=== PATIENT | female | born 1985 | race American Indian/Alaskan Native ===

== ENCOUNTER 2018-08-01 08:16 | Emergency (ER) | payer MEDICARE ==
[2018-08-01 08:23] VITALS: BP 134/76
[2018-08-01] MEDS ORDERED: ZOFRAN ODT PO ONE (11:20)
[2018-08-01] MEDS ORDERED: NORCO 10/325 PO ONE (11:20)
--- NOTE | 2018-08-01 11:33 | Emergency Department Report ---
ED General Adult HPI - General Chief complaint: Dental/Oral Stated complaint: TOOTHACHE Time Seen by Provider: 08/01/18 11:00 Source: patient Mode of arrival: Ambulatory Limitations: No Limitations - History of Present Illness Initial comments: Patient complains of right upper dental pain that started 2 days ago. Patient states eating or drinking as her symptoms worse. Patient denies fever -: Gradual Location: mouth Radiation: non-radiation Severity scale (0 -10): 3 Quality: aching Consistency: constant Improves with: none Worsens with: cold therapy, eating Associated Symptoms: denies other symptoms Treatments Prior to Arrival: none - Related Data Previous Rx's Medication Instructions Recorded Last Taken Type HYDROcodone/ACETAMINOPHEN [[place] 1 each PO Q6HR #12 tablet 08/01/18 Unknown Rx 5-325 Tablet] Ibuprofen [Motrin] 800 mg PO Q8HR PRN #30 tablet 08/01/18 Unknown Rx Penicillin V Potassium 500 mg PO TID #21 tablet 08/01/18 Unknown Rx Allergies Allergy/AdvReac Type Severity Reaction Status Date / Time shellfish derived Allergy Hives Verified 08/01/18 08:21 ED Review of Systems ROS: Stated complaint: TOOTHACHE Other details as noted in HPI Constitutional: denies: chills, fever Eyes: denies: eye pain, eye discharge, vision change ENT: dental pain. denies: ear pain, throat pain Respiratory: denies: cough, shortness of breath, wheezing Cardiovascular: denies: chest pain, palpitations Endocrine: no symptoms reported Gastrointestinal: denies: abdominal pain, nausea, diarrhea Genitourinary: denies: urgency, dysuria, discharge Musculoskeletal: denies: back pain, joint swelling, arthralgia Skin: denies: rash, lesions Neurological: denies: headache, weakness, paresthesias Psychiatric: denies: anxiety, depression Hematological/Lymphatic: denies: easy bleeding, easy bruising ED Past Medical Hx - Past Medical History Hx Asthma: Yes - Surgical History Additional Surgical History: gastric bypass - Social History Smoking Status: Current Some Day Smoker Substance Use Type: Alcohol - Medications Home Medications: Home Medications Medication Instructions Recorded Confirmed Last Taken Type HYDROcodone/ACETAMINOPHEN [[place] 1 each PO Q6HR #12 tablet 08/01/18 Unknown Rx 5-325 Tablet] Ibuprofen [Motrin] 800 mg PO Q8HR PRN #30 tablet 09/05/18 Unknown Rx Penicillin V Potassium 500 mg PO TID #21 tablet 08/01/18 Unknown Rx ED Physical Exam - General Limitations: No Limitations General appearance: alert, in no apparent distress - Head Head exam: Present: atraumatic, normocephalic - Eye Eye exam: Present: normal appearance - ENT ENT exam: Present: mucous membranes moist, other (dental caries of the right upper molars with soft tissue swelling surrounding the tooth) - Neck Neck exam: Present: normal inspection - Respiratory Respiratory exam: Present: normal lung sounds bilaterally. Absent: respiratory distress - Cardiovascular Cardiovascular Exam: Present: regular rate, normal rhythm. Absent: systolic murmur, diastolic murmur, rubs, gallop - GI/Abdominal GI/Abdominal exam: Present: soft, normal bowel sounds - Extremities Exam Extremities exam: Present: normal inspection - Back Exam Back exam: Present: normal inspection - Neurological Exam Neurological exam: Present: alert, oriented X3, CN II-XII intact. Absent: motor sensory deficit - Psychiatric Psychiatric exam: Present: normal affect, normal mood - Skin Skin exam: Present: warm, dry, intact, normal color. Absent: rash ED Course Vital Signs 08/01/18 08:21 Temperature 98.6 F Pulse Rate 86 Respiratory 18 Rate Blood Pressure 134/76 O2 Sat by Pulse 98 Oximetry ED Medical Decision Making - Medical Decision Making Discussed plan of care with patient Critical care attestation.: If time is entered above; I have spent that time in minutes in the direct care of this critically ill patient, excluding procedure time. ED Disposition Clinical Impression: Pain, dental Disposition: DC-01 TO HOME OR SELFCARE Is pt being admited?: No Does the pt Need Aspirin: No Condition: Stable Instructions: Toothache (ED) Additional Instructions: return if worse Prescriptions: HYDROcodone/ACETAMINOPHEN [[place] 5-325 Tablet] 1 each PO Q6HR #12 tablet Ibuprofen [Motrin] 800 mg PO Q8HR PRN #30 tablet PRN Reason: pain Penicillin V Potassium 500 mg PO TID #21 tablet Referrals: PRIMARY CARE,MD [Primary Care Provider] - 3-5 Days [facility] [Outside] - 3-5 Days Time of Disposition: 11:33
== END 2018-08-01 11:53 | disposition home or self-care (01) ==
LOC: ED 08:16
DX: K08.89 Other specified disorders of teeth and supporting structures (principal); F17.200 Nicotine dependence, unspecified, uncomplicated; J45.909 Unspecified asthma, uncomplicated; Z91.013 Allergy to seafood
CPT/HCPCS: 99282; Q0162

== ENCOUNTER 2019-04-30 15:23 | Emergency (ER) | payer MEDICARE ==
--- NOTE | 2019-04-30 16:28 | Emergency Department Report ---
Chief Complaint: Dizziness Stated Complaint: DIZZY/LIGHTHEADED Time Seen by Provider: 04/30/19 16:23 - HPI History of Present Illness: This is a 33 y.o. F. that presents to the ER with dizziness and headache since last night. History of WPW and migraines. - Exam Vital Signs: Vital Signs 04/30/19 16:23 Temperature 98.4 F Pulse Rate 58 L Respiratory 16 Rate Blood Pressure 116/64 O2 Sat by Pulse 99 Oximetry MSE screening note: Focused history and physical exam performed. Due to findings the following was ordered: This initial assessment/diagnostic orders/clinical plan/treatment(s) is/are subject to change based on patient's health status, clinical progression and re- assessment by fellow clinical providers in the ED. Further treatment and workup at subsequent clinical providers discretion. Patient/guardians urged not to elope from the ED as their condition may be serious if not clinically assessed and managed. Initial orders include: EKG ED Disposition for MSE Condition: Stable
[2019-04-30 20:14] VITALS: BP 108/67
[2019-04-30] MEDS ORDERED: BENADRYL PO ONE (21:01)
[2019-04-30] MEDS ORDERED: TYLENOL PO ONE (21:02)
--- NOTE | 2019-04-30 22:12 | Emergency Department Report ---
ED Dizziness HPI - General Chief Complaint: Dizziness Stated Complaint: DIZZY/LIGHTHEADED Time Seen by Provider: 04/30/19 16:23 Source: patient Mode of arrival: Ambulatory Limitations: No Limitations - History of Present Illness Initial Comments: Patient is a 33-year-old female with a history of migraine headaches and WPW who presents with dizziness since yesterday there is associated with sinus pressure there is no fever no chills symptoms are exacerbated by position and movement systems WERE reviewed by rest patient denies cough there is no rhino rrhea this time there is no chest pain no palpitations no nausea vomiting no back pain no diaphoresis patient is ambulatory to baseline with steady gait per patient. headache is 5/10 parietal usual location as headaches of past there is no decreased vision no photophobia. MD Complaint: dizziness Onset/Timin -: days(s) Timing: gradual onset Description: sense of movement History of Same: Yes History of Trauma: No Severity: moderate Improves With: rest Worsens With: movement Associated Symptoms: denies: ataxia, chest pain, confusion, cough, diaphoresis, fever/chills, loss of appetite, malaise, rash, seizure, shortness of breath, syncope, weakness - Related Data Previous Rx's Medication Instructions Recorded Last Taken Type HYDROcodone/ACETAMINOPHEN [[place] 1 each PO Q6HR #12 tablet 08/01/18 Unknown Rx 5-325 Tablet] Ibuprofen [Motrin] 800 mg PO Q8HR PRN #30 tablet 08/01/18 Unknown Rx Penicillin V Potassium 500 mg PO TID #21 tablet 08/01/18 Unknown Rx Acetaminophen [Acetaminophen TAB] 1,000 mg PO Q6HR PRN #30 tablet 04/30/19 Unknown Rx Metoclopramide [Reglan] 10 mg PO Q6H PRN #30 tablet 04/30/19 Unknown Rx diphenhydrAMINE [Benadryl CAP] 25 mg PO Q6HR PRN #30 capsule 04/30/19 Unknown Rx Allergies Allergy/AdvReac Type Severity Reaction Status Date / Time shellfish derived Allergy Hives Verified 04/30/19 15:31 ED Review of Systems ROS: Stated complaint: DIZZY/LIGHTHEADED Other details as noted in HPI Constitutional: denies: chills, fever Eyes: denies: eye pain, eye discharge, vision change ENT: congestion, other (sinus pressure pain). denies: ear pain, throat pain Respiratory: denies: cough, shortness of breath, wheezing Cardiovascular: denies: chest pain, palpitations Endocrine: no symptoms reported Gastrointestinal: denies: abdominal pain, nausea, diarrhea Genitourinary: frequency. denies: urgency, dysuria, discharge Musculoskeletal: denies: back pain, joint swelling, arthralgia Skin: denies: rash, lesions Neurological: headache. denies: weakness, numbness, paresthesias, confusion, abnormal gait, vertigo Psychiatric: denies: anxiety, depression Hematological/Lymphatic: denies: easy bleeding, easy bruising ED Past Medical Hx - Past Medical History Previous Medical History?: No Hx Asthma: Yes - Surgical History Additional Surgical History: gastric bypass - Social History Smoking Status: Current Every Day Smoker Substance Use Type: None - Medications Home Medications: Home Medications Medication Instructions Recorded Confirmed Last Taken Type HYDROcodone/ACETAMINOPHEN [[place] 1 each PO Q6HR #12 tablet 08/01/18 Unknown Rx 5-325 Tablet] Ibuprofen [Motrin] 800 mg PO Q8HR PRN #30 tablet 08/01/18 Unknown Rx Penicillin V Potassium 500 mg PO TID #21 tablet 08/01/18 Unknown Rx Acetaminophen [Acetaminophen TAB] 1,000 mg PO Q6HR PRN #30 tablet 04/30/19 Unk nown Rx Metoclopramide [Reglan] 10 mg PO Q6H PRN #30 tablet 04/30/19 Unknown Rx diphenhydrAMINE [Benadryl CAP] 25 mg PO Q6HR PRN #30 capsule 04/30/19 Unknown Rx ED Physical Exam - General Limitations: No Limitations General appearance: alert, in no apparent distress - Head Head exam: Present: atraumatic, normocephalic, normal inspection - Eye Eye exam: Present: normal appearance, PERRL, EOMI Pupils: Present: normal accommodation - ENT ENT exam: Present: normal orophraynx, mucous membranes moist, TM's normal bilaterally, normal external ear exam, other (mild bilat maxillary pain to palpation no swelling no erythema drainage ) - Neck Neck exam: Present: normal inspection, full ROM. Absent: tenderness, meningis mus, lymphadenopathy - Respiratory Respiratory exam: Present: normal lung sounds bilaterally. Absent: respiratory distress, wheezes, stridor, chest wall tenderness - Cardiovascular Cardiovascular Exam: Present: regular rate, normal rhythm, normal heart sounds. Absent: systolic murmur, diastolic murmur, rubs, gallop - GI/Abdominal GI/Abdominal exam: Present: soft, normal bowel sounds. Absent: distended, tenderness, bruit, hernia - Rectal Rectal exam: Present: deferred - Extremities Exam Extremities exam: Present: normal inspection, full ROM, normal capillary refill. Absent: tenderness, pedal edema, joint swelling - Back Exam Back exam: Present: normal inspection, full ROM. Absent: tenderness, CVA tenderness (R), rash noted - Neurological Exam Neurological exam: Present: alert, oriented X3, CN II-XII intact, normal gait, reflexes normal - Psychiatric Psychiatric exam: Present: normal affect, normal mood - Skin Skin exam: Present: warm, dry, intact, normal color. Absent: rash ED Course Vital Signs 04/30/19 04/30/19 04/30/19 16:23 19:43 20:09 Temperature 98.4 F 99.1 F Pulse Rate 58 L 56 L Respiratory 16 17 15 Rate Blood Pressure 116/64 108/67 O2 Sat by Pulse 99 99 Oximetry ED Medical Decision Making - EKG Data EKG shows normal: sinus rhythm, axis, intervals, QRS complexes, ST-T waves Rate: normal - EKG Data When compared to previous EKG there are: previous EKG unavailable Interpretation: normal EKG (ekg interp by ed attending NSR no ST Elevated [place], no ectopy ) - Medical Decision Making headache is relieved pt now states she can no longer wait for results, advises that she is leaving at this time. I have discussed risk of leaving AMA with patient, and she has had the opportunity to ask questions and I have answered all questions to her satisfaction pt is currently a/o x3 with nad, ,pt demonstrates sound decision making capacity pt is a/ox 3 , mentation is appropriate , pt signed out against medical advise at this time. Critical care attestation.: If time is entered above; I have spent that time in minutes in the direct care of this critically ill patient, excluding procedure time. ED Disposition Clinical Impression: Dizziness Headache Qualifiers: Headache type: unspecified Headache chronicity pattern: unspecified pattern Intractability: not intractable Qualified Code(s): R51 - Headache Disposition: DC-07 LEFT AGAINST MED ADVICE Is pt being admited?: No Does the pt Need Aspirin: No Condition: Undetermined Instructions: Dizziness (ED), Acute Headache (ED) Prescriptions: Acetaminophen [Acetaminophen TAB] 1,000 mg PO Q6HR PRN #30 tablet PRN Reason: Headache diphenhydrAMINE [Benadryl CAP] 25 mg PO Q6HR PRN #30 capsule PRN Reason: Headache Metoclopramide [Reglan] 10 mg PO Q6H PRN #30 tablet PRN Reason: Headache Referrals: KATERINE MILLIGAN MD [Primary Care Provider] - 3-5 Days Forms: AMA Form Time of Disposition: 23:30
[2019-04-30 23:46] LABS: HCG Qualitative,Urine Negative (Negative)
== END 2019-04-30 23:51 | disposition left against medical advice (07) ==
LOC: ED 15:23
DX: G43.909 Migraine, unspecified, not intractable, without status migrainosus (principal); R42 Dizziness and giddiness; J45.909 Unspecified asthma, uncomplicated; F17.200 Nicotine dependence, unspecified, uncomplicated; Z98.84 Bariatric surgery status; Z91.013 Allergy to seafood
CPT/HCPCS: 81025; 93005; 93010; 99283

== ENCOUNTER 2019-11-14 07:43 | Emergency (ER) | payer MEDICARE ==
[2019-11-14 07:52] VITALS: BP 137/78
[2019-11-14 08:42] LABS: HCG Qualitative,Urine Negative (Negative)
[2019-11-14 08:44] LABS: Bilirubin,Urine NEG (Negative); Blood,Urine SM (Negative); Color,Urine Yellow (Yellow); Mucus,Urine 1+ /HPF; Protein,Urine <15 mg/dL mg/dL (Negative)
[2019-11-14] MEDS ORDERED: KETOROLAC 30 MG/1 ML INJ IV ONE (09:31)
[2019-11-14] MEDS ORDERED: ONDANSETRON 4 MG/2 ML INJ IV ONE (09:31)
[2019-11-14] MEDS ORDERED: SODIUM CHLORIDE 0.9% 1000 ML 1,000 ML IV ONE (09:31)
--- NOTE | 2019-11-14 09:36 | Emergency Department Report ---
ED Headache HPI - General Chief Complaint: Headache Stated Complaint: 3 DAYS CRAMPS/HEADACHE/PAIN Time Seen by Provider: 11/14/19 09:12 - History of Present Illness Initial Comments: 34-year-old -[place] female patient complains of headache and lower back pain 3 days area she rates both pains as a 8/10 in severity. They've history of intermittent migraine and states Tylenol is not helping with her headache or back pain. Reports she is unable to take NSAIDs due to having gastric bypass surgery. She denies any dizziness, vision changes, numbness/tingling/weakness in her limbs, chest pain/shortness of breath, or dysuria. Patient states she has chronic lower back pain that is intermittent and this feels like her normal back pain. Patient also states concern for due to missed cycle. Head Injury Location: global Allergies/Adverse Reactions: Allergies shellfish derived Allergy (Verified 04/30/19 15:31) Hives Home Medications: Ambulatory Orders HYDROcodone/ACETAMINOPHEN [[place] 5-325 Tablet] 1 each PO Q6HR #12 tablet 08/01/18 Ibuprofen [Motrin] 800 mg PO Q8HR PRN #30 tablet 08/01/18 Penicillin V Potassium 500 mg PO TID #21 tablet 08/01/18 Acetaminophen [Acetaminophen TAB] 1,000 mg PO Q6HR PRN #30 tablet 04/30/19 Metoclopramide [Reglan] 10 mg PO Q6H PRN #30 tablet 04/30/19 diphenhydrAMINE [Benadryl CAP] 25 mg PO Q6HR PRN #30 capsule 04/30/19 ED Review of Systems ROS: Stated complaint: 3 DAYS CRAMPS/HEADACHE/PAIN Other details as noted in HPI Comment: All other systems reviewed and negative Gastrointestinal: nausea Musculoskeletal: as per HPI Neurological: as per HPI ED Past Medical Hx - Past Medical History Hx Asthma: Yes - Surgical History Additional Surgical History: gastric bypass - Social History Smoking Status: Current Every Day Smoker - Medications Home Medications: Home Medications Medication Instructions Recorded Confirmed Last Taken Type HYDROcodone/ACETAMINOPHEN [[place] 1 each PO Q6HR #12 tablet 08/01/18 Unknown Rx 5-325 Tablet] Ibuprofen [Motrin] 800 mg PO Q8HR PRN #30 tablet 08/01/18 Unknown Rx Penicillin V Potassium 500 mg PO TID #21 tablet 08/01/18 Unknown Rx Acetaminophen [Acetaminophen TAB] 1,000 mg PO Q6HR PRN #30 tablet 04/30/19 Unknown Rx Metoclopramide [Reglan] 10 mg PO Q6H PRN #30 tablet 04/30/19 Unknown Rx diphenhydrAMINE [Benadryl CAP] 25 mg PO Q6HR PRN #30 capsule 04/30/19 Unknown Rx ED Physical Exam - General Limitations: No Limitations General appearance: alert, in no apparent distress - Head Head exam: Present: atraumatic, normocephalic - Eye Eye exam: Present: normal appearance, PERRL, EOMI. Absent: scleral icterus - Neck Neck exam: Present: normal inspection, full ROM. Absent: tenderness - Respiratory Respiratory exam: Present: normal lung sounds bilaterally. Absent: respiratory distress - Cardiovascular Cardiovascular Exam: Present: regular rate, normal rhythm. Absent: systolic murmur, diastolic murmur, rubs, gallop - GI/Abdominal GI/Abdominal exam: Present: soft, normal bowel sounds. Absent: distended, tenderness, guarding, rebound, rigid - Rectal Rectal exam: Present: deferred - Extremities Exam Extremities exam: Present: normal inspection, full ROM - Back Exam Back exam: Present: full ROM, paraspinal tenderness (sacroiliac). Absent: CVA tenderness (R), CVA tenderness (L), vertebral tenderness - Neurological Exam Neurological exam: Present: alert, oriented X3, CN II-XII intact, normal gait. Absent: motor sensory deficit - Expanded Neurological Exam Expanded Cerebellar function: Finger to Nose: Normal, Heel to Barr: Normal, [place]: Normal Sensory exam: Upper Extremity Light Touch: Normal, Lower Extremity Light Touch: Normal Motor strength exam: RUE: 5, LUE: 5, RLE: 5, LLE: 5 ED Course Vital Signs 11/14/19 07:51 Temperature 97.6 F Pulse Rate 78 Respiratory 16 Rate Blood Pressure 137/78 O2 Sat by Pulse 100 Oximetry ED Medical Decision Making - Lab Data Result diagrams: 11/14/19 11:04 11/14/19 11:04 Lab Results 11/14/19 11/14/19 11/14/19 Range/Units 08:25 11:04 11:04 WBC 5.1 (4.5-11.0) K/mm3 RBC 4.02 (3.65-5.03) M/mm3 Hgb 13.0 (10.1-14.3) gm/dl Hct 38.1 (30.3-42.9) % MCV 95 (79-97) fl MCH 32 (28-32) pg MCHC 34 (30-34) % RDW 13.0 L (13.2-15.2) % Plt Count 263 (140-440) K/mm3 Lymph % (Auto) 36.4 H (13.4-35.0) % [place] % (Auto) 9.0 H (0.0-7.3) % Eos % (Auto) 1.3 (0.0-4.3) % Baso % (Auto) 0.7 (0.0-1.8) % Lymph # 1.9 (1.2-5.4) K/mm3 [place] # 0.5 (0.0-0.8) K/mm3 Eos # 0.1 (0.0-0.4) K/mm3 Baso # 0.0 (0.0-0.1) K/mm3 Seg Neutrophils % 52.6 (40.0-70.0) % Seg Neutrophils # 2.7 (1.8-7.7) K/mm3 Sodium (137-145) mmol/L Potassium (3.6-5.0) mmol/L Chloride (98-107) mmol/L Carbon Dioxide (22-30) mmol/L Anion Gap mmol/L BUN (7-17) mg/dL Creatinine (0.7-1.2) mg/dL Estimated GFR ml/min BUN/Creatinine Ratio % Glucose (65-100) mg/dL Calcium (8.4-10.2) mg/dL HCG, Qual Negative (Negative) Urine Color Yellow (Yellow) Urine Turbidity Clear (Clear) Urine pH 5.0 (5.0-7.0) Ur Specific [place] 1.021 (1.003-1.030) Urine Protein <15 mg/dl (Negative) mg/dL Urine Glucose (UA) Neg (Negative) mg/dL Urine Ketones Neg (Negative) mg/dL Urine Blood Sm (Negative) Urine Nitrite Neg (Negative) Ur Reducing Substances Not Reportable Urine Bilirubin Neg (Negative) Urine Ictotest Not Reportable Urine Urobilinogen 2.0 (<2.0) mg/dL Ur Leukocyte Esterase Neg (Negative) Urine WBC (Auto) 1.0 (0.0-6.0) /HPF Urine RBC (Auto) 5.0 (0.0-6.0) /HPF U Epithel Cells (Auto) 4.0 (0-13.0) /HPF Urine Mucus 1+ /HPF Urine HCG, Qual Negative (Negative) 11/14/19 Range/Units 11:04 WBC (4.5-11.0) K/mm3 RBC (3.65-5.03) M/mm3 Hgb (10.1-14.3) gm/dl Hct (30.3-42.9) % MCV (79-97) fl MCH (28-32) pg MCHC (30-34) % RDW (13.2-15.2) % Plt Count (140-440) K/mm3 Lymph % (Auto) (13.4-35.0) % [place] % (Auto) (0.0-7.3) % Eos % (Auto) (0.0-4.3) % Baso % (Auto) (0.0-1.8) % Lymph # (1.2-5.4) K/mm3 [place] # (0.0-0.8) K/mm3 Eos # (0.0-0.4) K/mm3 Baso # (0.0-0.1) K/mm3 Seg Neutrophils % (40.0-70.0) % Seg Neutrophils # (1.8-7.7) K/mm3 Sodium 139 (137-145) mmol/L Potassium 4.6 (3.6-5.0) mmol/L Chloride 105.1 (98-107) mmol/L Carbon Dioxide 21 L (22-30) mmol/L Anion Gap 18 mmol/L BUN 11 (7-17) mg/dL Creatinine 0.4 L (0.7-1.2) mg/dL Estimated GFR > 60 ml/min BUN/Creatinine Ratio 28 % Glucose 81 (65-100) mg/dL Calcium 8.8 (8.4-10.2) mg/dL HCG, Qual (Negative) Urine Color (Yellow) Urine Turbidity (Clear) Urine pH (5.0-7.0) Ur Specific [place] (1.003-1.030) Urine Protein (Negative) mg/dL Urine Glucose (UA) (Negative) mg/dL Urine Ketones (Negative) mg/dL Urine Blood (Negative) Urine Nitrite (Negative) Ur Reducing Substances Urine Bilirubin (Negative) Urine Ictotest Urine Urobilinogen (<2.0) mg/dL Ur Leukocyte Esterase (Negative) Urine WBC (Auto) (0.0-6.0) /HPF Urine RBC (Auto) (0.0-6.0) /HPF U Epithel Cells (Auto) (0-13.0) /HPF Urine Mucus /HPF Urine HCG, Qual (Negative) - Medical Decision Making 34-year-old female patient here today with complaints of headache and low back pain for 3 days. Patient states history of chronic back pain due to pinched nerve and history of migraines. She denies any red flag symptoms. Neuro exam is normal. Labs are WNL. She given Toradol, Decadron, and 1 L bolus of fluids and states her headache has resolved. She states her back pain has improved but continues and this is normal for her per patient. Recommend follow-up with cash specialist for further evaluation of chronic back pain. Discussed strict return precautions in detail with patient who states understanding. Critical care attestation.: If time is entered above; I have spent that time in minutes in the direct care of this critically ill patient, excluding procedure time. ED Disposition Clinical Impression: Headache Qualifiers: Headache type: tension-type Headache chronicity pattern: acute headache Intractability: not intractable Qualified Code(s): G44.209 - Tension-type headache, unspecified, not intractable Chronic low back pain Qualifiers: Back pain laterality: bilateral Sciatica presence: without sciatica Qualified Code(s): M54.5 - Low back pain Disposition: DC-01 TO HOME OR SELFCARE Is pt being admited?: No Condition: Stable Instructions: Acute Headache (ED), Chronic Back Pain (ED) Referrals: BRANDEN GRULLON MD [Staff Physician] - 3-5 Days [place] KATERINE TELLO MD [Primary Care Provider] - 3-5 Days
[2019-11-14 11:15] LABS: Basophils % (Auto) 0.7 % (0.0-1.8); Eosinophils # (Auto) 0.1 K/mm3 (0.0-0.4); Eosinophils % (Auto) 1.3 % (0.0-4.3); Hematocrit 38.1 % (30.3-42.9); Lymphocytes # (Auto) 1.9 K/mm3 (1.2-5.4); Lymphocytes % (Auto) 36.4 % (13.4-35.0); Mean Corpuscular HGB Conc 34 % (30-34); Mean Corpuscular Volume 95 fl (79-97); Monocytes # (Auto) 0.5 K/mm3 (0.0-0.8); Platelet Count 263 K/mm3 (140-440); Red Blood Count 4.02 M/mm3 (3.65-5.03)
[2019-11-14 11:35] LABS: BUN/Creatinine Ratio 28; Blood Urea Nitrogen 11 mg/dL (7-17); Calcium 8.8 mg/dL (8.4-10.2); Hemolysis Index 93
== END 2019-11-14 12:20 | disposition home or self-care (01) ==
LOC: ED 07:43
DX: R51 Headache (principal); M54.5 Low back pain; G89.29 Other chronic pain; J45.909 Unspecified asthma, uncomplicated; F17.200 Nicotine dependence, unspecified, uncomplicated; Z91.013 Allergy to seafood
CPT/HCPCS: 36415; 80048; 81001; 81025; 84703; 85025; 96374; 96375; 99283; J1885; J2405; J7030

== ENCOUNTER 2020-08-03 14:21 | Emergency (ER) | payer MEDICARE ==
[2020-08-03 14:52] VITALS: BP 136/80
--- NOTE | 2020-08-03 16:10 | Emergency Department Report ---
HPI - General Chief Complaint: Fall Time Seen by Provider: 08/03/20 15:35 - HPI HPI: Room 42 The patient is a 35-year-old female present with a chief complaint of pain after fall through patio floor. The patient states 2 days 1 of the wooden planks to her patio floor broke causing her right leg to fall through the floor. Patient states she landed in an awkward position injuring her right shoulder. Patient complains of pain in her right flank, right shoulder and the top of her right foot. Patient denies loss of consciousness. Patient gives her pain a score of 5/10 ED Past Medical Hx - Past Medical History Previous Medical History?: Yes Hx Asthma: Yes - Surgical History Past Surgical History?: Yes Additional Surgical History: gastric bypass - Family History Family history: no significant - Social History Smoking Status: Current Every Day Smoker (1/2 pack/day) Substance Use Type: None (Denies illicit drug use), Alcohol (3 times a week) - Medications Home Medications: Home Medications Medication Instructions Recorded Confirmed Last Taken Type HYDROcodone/ACETAMINOPHEN [[place] 1 each PO Q6HR #12 tablet 08/01/18 Unknown Rx 5-325 Tablet] Ibuprofen [Motrin] 800 mg PO Q8HR PRN #30 tablet 08/01/18 Unknown Rx Penicillin V Potassium 500 mg PO TID #21 tablet 08/01/18 Unknown Rx Acetaminophen [Acetaminophen TAB] 1,000 mg PO Q6HR PRN #30 tablet 04/30/19 Unknown Rx Metoclopramide [Reglan] 10 mg PO Q6H PRN #30 tablet 04/30/19 Unknown Rx diphenhydrAMINE [Benadryl CAP] 25 mg PO Q6HR PRN #30 capsule 04/30/19 Unknown Rx Cyclobenzaprine [Flexeril] 10 mg PO TID PRN #10 tablet 08/03/20 Unknown Rx HYDROcodone/APAP 5-325 [[place] 1 - 2 each PO Q6HR PRN #5 tablet 08/03/20 Unknown Rx 5/325] Ibuprofen [Motrin 800 MG tab] 800 mg PO Q8HR PRN #20 tablet 08/03/20 Unknown Rx ED Review of Systems ROS: Stated complaint: FALL Other details as noted in HPI Constitutional: no symptoms reported Respiratory: no symptoms reported Endocrine: no symptoms reported Musculoskeletal: back pain, arthralgia, myalgia Physical Exam - Physical Exam Vital Signs: Vital Signs 08/03/20 14:48 Temperature 98.4 F Pulse Rate 66 Respiratory 18 Rate Blood Pressure 136/80 [Right] O2 Sat by Pulse 99 Oximetry Physical Exam: GENERAL: The patient is well-developed well-nourished female lying on chair not appearing to be in acute distress. [] HEENT: Normocephalic. Atraumatic. Extraocular motions are intact. Patient has moist mucous membranes. NECK: Supple. No axial tenderness to palpation CHEST/LUNGS: Clear to auscultation. There is no respiratory distress noted. HEART/CARDIOVASCULAR: Regular. There is no tachycardia. There is no gallop rub or murmur. ABDOMEN: Abdomen is soft, nontender. Patient has normal bowel sounds. There is no abdominal distention. SKIN: There is no rash. There is no edema. There is no diaphoresis. NEURO: The patient is awake, alert, and oriented. The patient is cooperative. The patient has no focal neurologic deficits. The patient has normal speech MUSCULOSKELETAL: There is no axial tenderness to palpation of the thoracic or lumbar spine. There is no limitation range of motion. There is tenderness to the dorsum of the proximal right foot ED Course Vital Signs 08/03/20 14:48 Temperature 98.4 F Pulse Rate 66 Respiratory 18 Rate Blood Pressure 136/80 [Right] O2 Sat by Pulse 99 Oximetry ED Medical Decision Making - Radiology Data Radiology results: report reviewed (Right shoulder x-ray, right foot x-ray, CT abdomen pelvis), image reviewed (Right shoulder x-ray, CT abdomen pelvis) interpreted by me: Right shoulder x-ray-no acute fracture, no foreign body, no dislocation Findings [facility] [address] [place] [address] XRay Report Signed Patient: BRIA ORNELAS MR# : [id number] : 1985 Acct:[id number] Age/Sex: 35 / F ADM Date: 08/03/20 Loc: ED A ttending Dr: Ordering Physician: BHANU SCHWARTZ MD Date of Service: 08/03/20 Procedure(s): XR shoulder 2+V RT Accession Number(s): [id number] cc: BHANU SCHWARTZ MD Fluoro Time In Minutes: RIGHT SHOULDER 3 VIEW(S) INDICATION / CLINICAL INFORMATION: MAIN COMPARISON: None available. FINDINGS: BONES / JOINT(S): No acute fracture or subluxation. No significant arthritis. SOFT TISSUES: No significant abnormality. ADDITIONAL FINDINGS: None. IMPRESSION: No acute osseous abnormality. Signer Name: Netta Orta MD Signed: 08/03/2020 5:34 PM Workstation Name: [id number] Transcribed By: SS Dictated By: NETTA ORTA Electronically Authenticated By: NETTA ORTA Signed Date/Time: 08/03/201733 DD/ 32 TD/TT: Right foot x-ray (read by radiologist)-no acute fracture seen Findings [facility] [address] [place] [address] Cat Scan Report Signed Patient: BRIA ORNELAS MR# : [id number] : 1985 Acct:[id number] Age/Sex: 35 / F ADM Date: 08/03/20 Loc: ED Attending Dr: Ordering Physician: BHANU SCHWARTZ MD Date of Service: 08/03/20 Procedure(s): CT abdomen pelvis wo con Accession Number(s): [id number] cc: BHANU SCHWARTZ MD CT ABDOMEN AND PELVIS WITHOUT CONTRAST INDICATION / CLINICAL INFORMATION: Right flank pain after 4' fall through patio floor. TECHNIQUE: Axial CT images were obtained through the abdomen and pelvis without IV contrast. All CT scans at this location are performed using CT dose reduction for ALARA by means of automated exposure control. COMPARISON: None available. FINDINGS: LOWER CHEST: No significant abnormality. LIVER: No significant abnormality. GALLBLADDER: No significant abnormality. BILE DUCTS: No significant abnormality. PANCREAS: No significant abnormality. SPLEEN: No significant abnormality. ADRENALS: No significant abnormality. RIGHT KIDNEY / URETER: No significant abnormality. LEFT KIDNEY / URETER: No significant abnormality. STOMACH / SMALL BOWEL: Postsurgical changes without significant abnormality. COLON: No significant abnormality. APPENDIX: No significant abnormality. PERITONEUM: No free fluid. No free air. No fluid collection. LYMPH NODES: No significant adenopathy. AORTA / ARTERIES: No significant abnormality. IVC / VEINS: No significant abnormality. URINARY BLADDER: No significant abnormality. REPRODUCTIVE ORGANS: No significant abnormality. ADDITIONAL FINDINGS: None. SKELETAL SYSTEM: No significant abnormality. IMPRESSION: 1. No acute abdominopelvic abnormality. Signer Name: Netta Orta MD Signed: 08/03/2020 6:25 PM Workstation Name: [id number] Transcribed By: SS Dictated By: NETTA ORTA Electronically Authenticated By: NETTA ORTA Signed Date/Time: 08/03/201824 DD/ 20 TD/TT: - Differential Diagnosis Right shoulder contusion, right foot contusion, right foot fracture, retrop Critical care attestation.: If time is entered above; I have spent that time in minutes in the direct care of this critically ill patient, excluding procedure time. ED Disposition Clinical Impression: Right flank pain, Contusion of right foot, Contusion of right shoulder Disposition: DC-01 TO HOME OR SELFCARE Is pt being admited?: No Does the pt Need Aspirin: No Condition: Stable Additional Instructions: Return to the emergency department should you develop worsening symptoms, inability to tolerate food or liquids, high fever or any other concerns Prescriptions: Cyclobenzaprine [Flexeril] 10 mg PO TID PRN #10 tablet PRN Reason: Muscle Spasm Ibuprofen [Motrin 800 MG tab] 800 mg PO Q8HR PRN #20 tablet PRN Reason: Pain, Moderate (4-6) HYDROcodone/APAP 5-325 [[place] 5/325] 1 - 2 each PO Q6HR PRN #5 tablet PRN Reason: Pain Referrals: PRIMARY CARE, [Primary Care Provider] - 3-5 Days BRANDEN ACHARYA MD [Staff Physician] - 3-5 Days (Dr. Acharya is an orthopedic surgeon. Please follow-up with him for further evaluation) Time of Disposition: 19:11
[2020-08-03] MEDS: HYDROcodone/ACETAMINOPHEN 5-325 MG TAB PO ONE ×2 (16:18→16:20)
--- NOTE | 2020-08-03 17:38 | XRay Report ---
RIGHT SHOULDER 3 VIEW(S) INDICATION / CLINICAL INFORMATION: MAIN COMPARISON: None available. FINDINGS: BONES / JOINT(S): No acute fracture or subluxation. No significant arthritis. SOFT TISSUES: No significant abnormality. ADDITIONAL FINDINGS: None. IMPRESSION: No acute osseous abnormality. Signer Name: John Orta MD Signed: 08/03/2020 5:34 PM Workstation Name: [id number]
--- NOTE | 2020-08-03 17:41 | XRay Report ---
RIGHT FOOT 3 VIEW(S) INDICATION / CLINICAL INFORMATION: Fall, pain COMPARISON: None available. FINDINGS: There is no acute fracture or dislocation. 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 Mild lateral deviation of the third proximal phalanx without acute osseous abnormality. Signer Name: John Orta MD Signed: 08/03/2020 5:36 PM Workstation Name: [id number]
--- NOTE | 2020-08-03 18:29 | Cat Scan Report ---
CT ABDOMEN AND PELVIS WITHOUT CONTRAST INDICATION / CLINICAL INFORMATION: Right flank pain after 4' fall through patio floor. TECHNIQUE: Axial CT images were obtained through the abdomen and pelvis without IV contrast. All CT scans at [facility] location are performed using CT dose reduction for ALARA by means of automated exposure control. COMPARISON: None available. FINDINGS: LOWER CHEST: No significant abnormality. LIVER: No significant abnormality. GALLBLADDER: No significant abnormality. BILE DUCTS: No significant abnormality. PANCREAS: No significant abnormality. SPLEEN: No significant abnormality. ADRENALS: No significant abnormality. RIGHT KIDNEY / URETER: No significant abnormality. LEFT KIDNEY / URETER: No significant abnormality. STOMACH / SMALL BOWEL: Postsurgical changes without significant abnormality. COLON: No significant abnormality. APPENDIX: No significant abnormality. PERITONEUM: No free fluid. No free air. No fluid collection. LYMPH NODES: No significant adenopathy. AORTA / ARTERIES: No significant abnormality. IVC / VEINS: No significant abnormality. URINARY BLADDER: No significant abnormality. REPRODUCTIVE ORGANS: No significant abnormality. ADDITIONAL FINDINGS: None. SKELETAL SYSTEM: No significant abnormality. IMPRESSION: 1. No acute abdominopelvic abnormality. Signer Name: John Orta MD Signed: 08/03/2020 6:25 PM Workstation Name: [id number]
[2020-08-03] MEDS ORDERED: HYDROcodone/ACETAMINOPHEN 5-325 MG TAB PO ONE (18:54)
== END 2020-08-03 19:32 | disposition home or self-care (01) ==
LOC: ED 14:21
DX: S40.011A Contusion of right shoulder, initial encounter (principal); S90.31XA Contusion of right foot, initial encounter; J45.909 Unspecified asthma, uncomplicated; F17.210 Nicotine dependence, cigarettes, uncomplicated; Z79.899 Other long term (current) drug therapy; Z91.013 Allergy to seafood; W18.39XA Other fall on same level, initial encounter; Y93.89 Activity, other specified; Y92.89 Other specified places as the place of occurrence of the external cause; Y99.8 Other external cause status
CPT/HCPCS: 36415; 74176; 84703

== ENCOUNTER 2020-09-07 12:53 | Emergency (ER) | payer MEDICARE ==
[2020-09-07 13:04] VITALS: BP 134/92
[2020-09-07] MEDS ORDERED: MORPHINE 4 MG/1 ML INJ IV ONE (13:15)
[2020-09-07] MEDS ORDERED: SODIUM CHLORIDE 0.9% 1000 ML 1,000 ML IV ONE (13:15)
[2020-09-07] MEDS ORDERED: KETOROLAC 30 MG/1 ML INJ IV ONE (13:15)
[2020-09-07] MEDS ORDERED: ONDANSETRON 4 MG/2 ML INJ IV ONE (13:15)
[2020-09-07] MEDS ORDERED: MORPHINE 2 MG/1 ML INJ ONE (13:18)
[2020-09-07 13:36] LABS: Basophils % (Auto) 0.5 % (0.0-1.8); Eosinophils # (Auto) 0.1 K/mm3 (0.0-0.4); Eosinophils % (Auto) 1.3 % (0.0-4.3); Hematocrit 36.4 % (30.3-42.9); Hemoglobin 12.6 gm/dl (10.1-14.3); Lymphocytes # (Auto) 1.7 K/mm3 (1.2-5.4); Lymphocytes % (Auto) 28.7 % (13.4-35.0); Mean Corpuscular HGB Conc 35 % (30-34); Mean Corpuscular Volume 93 fl (79-97); Monocytes # (Auto) 0.5 K/mm3 (0.0-0.8); Monocytes % (Auto) 8.7 % (0.0-7.3); Platelet Count 313 K/mm3 (140-440); Red Blood Count 3.92 M/mm3 (3.65-5.03); Red Cell Distribution Width 13.1 % (13.2-15.2)
--- NOTE | 2020-09-07 13:43 | XRay Report ---
CHEST 1 VIEW 09/07/2020 12:37 PM INDICATION / CLINICAL INFORMATION: Trauma. COMPARISON: None available. FINDINGS: SUPPORT DEVICES: None. HEART / MEDIASTINUM: No significant abnormality. LUNGS / PLEURA: No significant pulmonary or pleural abnormality. No pneumothorax. ADDITIONAL FINDINGS: No appreciable rib fractures. IMPRESSION: 1. No acute findings. Signer Name: Nick Jean-Baptiste MD Signed: 09/07/2020 1:38 PM Workstation Name: [id number]
[2020-09-07 13:45] LABS: INR 0.91 (0.87-1.13)
[2020-09-07 13:46] LABS: Partial Thromboplastin Time 29.4 Sec. (24.2-36.6)
[2020-09-07 13:48] LABS: Blood Urea Nitrogen 14 mg/dL (7-17); Calcium 9.2 mg/dL (8.4-10.2); Hemolysis Index 2
[2020-09-07 13:49] LABS: BUN/Creatinine Ratio 20
--- NOTE | 2020-09-07 14:28 | Cat Scan Report ---
CLINICAL DATA: [See Reason for Exam] Trauma TECHNICAL DATA: CT imaging of the cervical spine was performed in the axial, sagittal, and coronal projections and ivone ne algorithm in axial projection in the soft tissue algorithm. All CT scans at this location are performed using CT dose reduction for ALARA by means of automated e xposure control. C1-C2: The ring of C1 is normal. The odontoid is normal. There is no evidence of an offset. There is no evidence of a fracture. The spinal canal is well maintained. C2-C3: Minimum narrowing intervertebral disc space is noted. The spinal canal is well maintained. Th e neural foramina are normal. The vertebral bodies are normal. The posterior elements are intact. There is no evidence of a fracture. C3-C4: The spinal canal is well maintained. The neural foramina are normal. The vertebral bodies a re normal. The posterior elements are intact. There is no evidence of a fracture. C4-C5: Minimal intervertebral disc space is noted with small anterior osteophyte. The spinal canal is well maintained. The neural foramina are normal. The vertebral bodies are normal. The posterior e lements are intact. There is no evidence of a fracture. C5-C6: The spinal canal is well maintained. The neural foramina are normal. The vertebral bodies a re normal. The posterior elements are intact. There is no evidence of a fracture. C6-C7: The spinal canal is well maintained. The neural foramina are normal. The vertebral bodies a re normal. The posterior elements are intact. There is no evidence of a fracture. C7-T1: The spinal canal is well maintained. The neural foramina are normal. The vertebral bodies a re normal. The posterior elements are intact. There is no evidence of a fracture. IMPRESSION: There is no evidence of acute injury involving the cervical spine. Signer Name: Michele Bunch MD Signed: 09/07/2020 2:23 PM Workstation Name: [id number]
--- NOTE | 2020-09-07 14:32 | Cat Scan Report ---
CT HEAD WITHOUT CONTRAST INDICATION / CLINICAL INFORMATION: MAIN. Head injury TECHNIQUE: Axial imaging performed from the skull apex through the skull base without the use of cont rast. Sagittal and coronal reformatted images. All CT scans at this location are performed using CT dose reduction for ALARA by means of automated exposure control. COMPARISON: None available. FINDINGS: CEREBRAL PARENCHYMA: No significant abnormality. No acute territorial infarct. HEMORRHAGE: None. EXTRA-AXIAL SPACES: Normal in size and morphology for the patient's age. VENTRICULAR SYSTEM: Normal in size and morphology for the patient's age. MIDLINE SHIFT OR HERNIATION: None. CEREBELLUM / BRAINSTEM: No significant abnormality. CALVARIUM: No significant abnormality. ORBITS: Normal as visualized. PARANASAL SINUSES / MASTOID AIR CELLS: Normal as visualized. SOFT TISSUES of HEAD: Mild left-sided soft tissue swelling and focal laceration. ADDITIONAL FINDINGS: None. IMPRESSION: No acute intracranial abnormality. Left-sided soft tissue swelling and focal laceration. Signer Name: Javon Yen Jr, MD Signed: 09/07/2020 2:27 PM Workstation Name: [id number]
[2020-09-07] MEDS ORDERED: LIDOCAINE (1%) 10 MG/1 ML VIAL 20 ML MDV ONE (14:40)
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
--- NOTE | 2020-09-07 14:50 | Cat Scan Report ---
CT chest w con INDICATION: Trauma. TECHNIQUE: All CT scans at this location are performed using the following dose modulation technique: Automated exposure control. Helical slices were obtained through the chest. No contrast is administered. COMPARISON: None available. FINDINGS: There is no pneumothorax. There is minimal subsegmental dependent atelectasis. No significant infiltr ate is seen. The mediastinum is unremarkable. The aorta is normal in diameter. There is no dissection . Heart size is normal. No acute abnormality is seen in the upper abdomen. Postoperative changes are noted in the stomach junior racteristic of prior gastric bypass. On review of bone windows, no acute osseous abnormalities are seen. IMPRESSION: 1. No intrathoracic organ injury is identified. There is no pneumothorax. Signer Name: Lazarus Byrne MD Signed: 09/07/2020 2:45 PM Workstation Name: [id number]
[2020-09-07] MEDS ORDERED: HYDROcodone/ACETAMINOPHEN 5-325 MG TAB PO ONE (14:51)
[2020-09-07] MEDS ORDERED: TETANUS,DIPHTHERIA TOXOID ADULT 0.5 ML INJ IM SCH (15:00)
[2020-09-07] MEDS ORDERED: LIDOCAINE 1%/EPINEPHRINE 1:100,000 VIAL (20 ML) INFILTRATI SCH (15:00)
== END 2020-09-07 16:58 | disposition home or self-care (01) ==
LOC: ED 12:53
DX: S01.01XA Laceration without foreign body of scalp, initial encounter (principal); S16.1XXA Strain of muscle, fascia and tendon at neck level, initial encounter; S40.212A Abrasion of left shoulder, initial encounter; F17.200 Nicotine dependence, unspecified, uncomplicated; J45.909 Unspecified asthma, uncomplicated; Z91.013 Allergy to seafood; Z79.899 Other long term (current) drug therapy; Z98.890 Other specified postprocedural states; V09.9XXA Pedestrian injured in unspecified transport accident, initial encounter; Y92.410 Unspecified street and highway as the place of occurrence of the external cause; Y93.89 Activity, other specified; Y99.8 Other external cause status
CPT/HCPCS: 12002; 36415; 70450; 71045; 71260; 72125; 80048; 85025; 85610; 85730; 90471; 90714; 96361; 96374; 96375; 99285; J1885; J2270; J2405; J7030

== ENCOUNTER 2020-09-14 11:16 | Emergency (ER) | payer MEDICARE ==
[2020-09-14 11:33] VITALS: BP 119/52
--- NOTE | 2020-09-14 13:20 | Emergency Department Report ---
ED General Adult HPI - General Chief complaint: Laceration/Recheck/Suture Stated complaint: REMOVE ATUL Time Seen by Provider: 09/14/20 12:26 Source: patient Mode of arrival: Ambulatory Limitations: No Limitations - History of Present Illness Initial comments: 35 yo AA F pt presents for staple removal from scalp x today. Pt was seen here 09/07/20 and had atul placed after a fall with head injury. She denies any worsening pain, drainage, redness, swelling, or fever/chills/sweats. Pt states the wound appears to be healing well. - Related Data Previous Rx's Medication Instructions Recorded Last Taken Type HYDROcodone/ACETAMINOPHEN [[place] 1 each PO Q6HR #12 tablet 08/01/18 Unknown Rx 5-325 Tablet] Ibuprofen [Motrin] 800 mg PO Q8HR PRN #30 tablet 08/01/18 Unknown Rx Penicillin V Potassium 500 mg PO TID #21 tablet 08/01/18 Unknown Rx Acetaminophen [Acetaminophen TAB] 1,000 mg PO Q6HR PRN #30 tablet 04/30/19 Unknown Rx Metoclopramide [Reglan] 10 mg PO Q6H PRN #30 tablet 04/30/19 Unknown Rx diphenhydrAMINE [Benadryl CAP] 25 mg PO Q6HR PRN #30 capsule 04/30/19 Unknown Rx Cyclobenzaprine [Flexeril] 10 mg PO TID PRN #10 tablet 08/03/20 Unknown Rx HYDROcodone/APAP 5-325 [[place] 1 - 2 each PO Q6HR PRN #5 tablet 08/03/20 Unknown Rx 5/325] Ibuprofen [Motrin 800 MG tab] 800 mg PO Q8HR PRN #20 tablet 08/03/20 Unknown Rx HYDROcodone/APAP 5-325 [[place] 1 each PO Q6HR PRN #10 tablet 09/07/20 Unknown Rx 5/325] Allergies Allergy/AdvReac Type Severity Reaction Status Date / Time shellfish derived Allergy Hives Verified 04/30/19 15:31 ED Review of Systems ROS: Stated complaint: REMOVE ATUL Other details as noted in HPI Constitutional: denies: chills, diaphoresis, fever, malaise, other Skin: as per HPI, pruritus. denies: change in color ED Past Medical Hx - Past Medical History Previous Medical History?: Yes Hx Asthma: Yes - Surgical History Past Surgical History?: Yes Additional Surgical History: gastric bypass - Social History Smoking Status: Current Every Day Smoker (1/2 pack/day) Substance Use Type: None (Denies illicit drug use), Alcohol (3 times a week) - Medications Home Medications: Home Medications Medication Instructions Recorded Confirmed Last Taken Type HYDROcodone/ACETAMINOPHEN [[place] 1 each PO Q6HR #12 tablet 08/01/18 Unknown Rx 5-325 Tablet] Ibuprofen [Motrin] 800 mg PO Q8HR PRN #30 tablet 08/01/18 Unknown Rx Penicillin V Potassium 500 mg PO TID #21 tablet 08/01/18 Unknown Rx Acetaminophen [Acetaminophen TAB] 1,000 mg PO Q6HR PRN #30 tablet 04/30/19 Unknown Rx Metoclopramide [Reglan] 10 mg PO Q6H PRN #30 tablet 04/30/19 Unknown Rx diphenhydrAMINE [Benadryl CAP] 25 mg PO Q6HR PRN #30 capsule 04/30/19 Unknown Rx Cyclobenzaprine [Flexeril] 10 mg PO TID PRN #10 tablet 08/03/20 Unknown Rx HYDROcodone/APAP 5-325 [[place] 1 - 2 each PO Q6HR PRN #5 tablet 08/03/20 Unknown Rx 5/325] Ibuprofen [Motrin 800 MG tab] 800 mg PO Q8HR PRN #20 tablet 08/03/20 Unknown Rx HYDROcodone/APAP 5-325 [[place] 1 each PO Q6HR PRN #10 tablet 09/07/20 Unknown Rx 5/325] ED Physical Exam - General Limitations: No Limitations General appearance: alert, in no apparent distress - Head Head exam: Present: other (healing laceration noted to left side of scalp with [address] No surrounding erythema, swelling, or active drainage noted. No wound dehiscence noted.) - Eye Eye exam: Present: normal appearance. Absent: scleral icterus - Respiratory Respiratory exam: Absent: respiratory distress - Cardiovascular Cardiovascular Exam: Present: regular rate - Neurological Exam Neurological exam: Present: alert, oriented X3, normal gait - Psychiatric Psychiatric exam: Present: normal affect, normal mood - Skin Skin exam: Present: warm, dry, intact, normal color. Absent: rash, cyanosis, diaphoretic, erythema, ecchymosis ED Course Vital Signs 09/14/20 11:31 Temperature 98.0 F Pulse Rate 69 Respiratory 16 Rate Blood Pressure 119/52 [Right] O2 Sat by Pulse 100 Oximetry - Procedure Description Procedures done: 4 atul removed from left scalp. No bleeding or wound dehiscence noted. Pt tolerated procedure well without any immediate complications ED Medical Decision Making - Medical Decision Making 35 yo AA F pt presents for staple removal from scalp x today. Pt was seen here 09/07/20 and had atul placed after a fall with head injury. She denies any worsening pain, drainage, redness, swelling, or fever/chills/sweats. Pt states the wound appears to be healing well. Atul removed without any immediate complications. Pt tolerated procedure well. Pt to d/c home and follow up with PCP. Strict return precautions were discussed in detail with pt who verbalized understanding. Critical care attestation.: If time is entered above; I have spent that time in minutes in the direct care of this critically ill patient, excluding procedure time. ED Disposition Clinical Impression: Removal of staple Disposition: DC-01 TO HOME OR SELFCARE Is pt being admited?: No Condition: Stable Instructions: Suture Removal (ED) Referrals: PRIMARY CARE, [Primary Care Provider] - 3-5 Days
== END 2020-09-14 13:45 | disposition home or self-care (01) ==
LOC: ED 11:16
DX: S01.01XD Laceration without foreign body of scalp, subsequent encounter (principal); X58.XXXD Exposure to other specified factors, subsequent encounter